=== PATIENT | male | born 1980 | race Two or more races ===

== ENCOUNTER 2023-11-27 13:29 | Emergency (ER) | payer BC, SELFPAY ==
[2023-11-27 13:33] VITALS: BP 152/90; BMI 34.9
[2023-11-27 14:37] LABS: % Eosinophils 1.6 % (0-6); % Immature Granulocytes 0.1 % (0-0.5); % Lymphocytes 30.9 % (20.5-51.1); % Monocytes 8.6 % (1.7-9.3); % Neutrophils 57.8 % (42.2-75.2); Absolute Basophils 0.1 10^3/uL (0-0.2); Absolute Eosinophils 0.1 10^3/uL (0-0.7); Absolute Lymphocytes 2.2 10^3/uL (1.2-3.4); Absolute Monocytes 0.6 10^3/uL (0.1-0.6); Absolute Neutrophils 4.1 10^3/uL (1.4-6.5); Hematocrit 41.6 % (39.0-52.0); Hemoglobin 14.5 g/dL (13.0-18.0); Mean Corp Hgb Conc. 34.9 g/dL (33.0-37.0); Mean Corpuscular Hgb 29.9 pg (27.0-31.0); Mean Corpuscular Volume 85.8 fL (80.0-94.0); Nucleated Red Blood Cells % 0 % (-); Platelet Count 278 10^3/uL (130-400); Red Blood Cell Count 4.85 10^6/uL (4.70-6.10); Red Cell Dist. Width 13.6 % (11.5-14.5)
[2023-11-27 14:59] LABS: ALT (SGPT) 36 U/L (0-50); AST (SGOT) 28 U/L (17-59); Albumin 4.3 g/dl (3.5-5.0); Alkaline Phosphatase 69 U/L (38-126); Blood Urea Nitrogen 35 mg/dl (9-20); Calcium 9.8 mg/dl (8.4-10.2); Carbon Dioxide 29 mmol/L (22-30); Chloride 103 mmol/L (98-107); Estimated Creatinine Clearance 103 ml/min; Glucose 99 mg/dl (70-99); Potassium 4.4 mmol/L (3.5-5.1); Sodium 138 mmol/L (135-145); Total Bilirubin 0.4 mg/dl (0.2-1.3); Total Protein 7.1 g/dl (6.3-8.2); eGFR > 60.00
[2023-11-27 15:03] LABS: Troponin I < 0.012 ng/ml
--- NOTE | 2023-11-27 15:06 | ED.GENMED ---
History of Present Illness
General
Chief Complaint: Chest Pain
Source: patient
Exam Limitations: none
Time Seen by Provider: 11/27/23 15:05
Travel History
Have you had any contact with someone who has COVID-19?: No
Do you have any symptoms of coronavirus? Fever > 100 degrees, chills, cough, shortness of breath, sore throat, loss of taste or smell, muscle aches, or headache?: No
History of Present Illness
History of Present Illness:
43-year-old male with 3 days of intermittent sharp localized left lateral chest pain. Will last seconds. Has had 5-6 episodes today. Only component that seems to cause it is bouncing in his truck. He is a medical driver.
Past History
Social History
Tobacco: Non-smoker
Employment: Employed
Family History
Family History: CAD
Phy Exam
Physical Exam
Physical Exam:
GENERAL: Alert and oriented in no apparent distress
EYE: Orbits normal.
NECK: Supple, no significant adenopathy.
ENT: Pharynx without erythema
CARDIAC: Regular rate and rhythm without any obvious murmurs.
LUNGS: Clear breath sounds,normal
ABDOMEN: Soft, without focal tenderness or distention
NEUROLOGICAL: Alert and oriented , grossly non-focal
SKIN: Warm and dry, no rash or lesion, no discoloration, skin intact.
MUSCULOSKELETAL: No edema,no deformity.Good color
PSYCH: Normal and appropriate interaction.
Scores
Heart Score for Chest Pain Patients
STEMI patient?: No
History: Slightly or Non-Suspicious
ECG: Normal
Age: </= 45 years
Risk Factors: 1 or 2 Risk Factors
Troponin: </= Normal Limit
Heart Score for Chest Pain Patients: 1
Heart Score Risk: 2.5% MACE over next 6 weeks
Course
Orders/Labs/Results
Orders:
Orders
11/27/23 13:35
Electrocardiogram (*1) Urgent
Reason for Study: Chest Pain
EKG- Treatment ONCE
11/27/23 14:29
Complete Blood Count/With Diff Urgent
Comprehensive Metabolic Panel Urgent
Troponin I Urgent
11/27/23 15:14
CXR2 [CR Chest - 2 Views ] Urgent
Comment:
Reason For Exam: Sharp left lateral chest pain
11/27/23 15:52
D-Dimer Urgent
Abnormal Lab Results
11/27/23
14:29
MPV 11.0 H fL
(7.4-10.4)
BUN 35 H mg/dl
(9-20)
11/27/23 14:29
11/27/23 14:29
Vital Signs
Initial and Last Documented VS:
Initial Vital Signs
Temp Pulse Resp BP Pulse Ox
98.3 F 68 16 152/90 100
11/27/23 13:33 11/27/23 13:33 11/27/23 13:33 11/27/23 13:33 11/27/23 13:33
Last Documented Vital Signs
Temp Pulse Resp BP Pulse Ox
98.3 F 68 16 152/90 100
11/27/23 13:33 11/27/23 13:33 11/27/23 13:33 11/27/23 13:33 11/27/23 13:33
*Radiology
Radiology exam reviewed: radiology read reviewed (Negative)
*Pulse Oximetry
Patient hypoxic: no
*EKG
Interpreted by ED Provider?: Yes
Interpretation: normal
Comparison EKG: no comparison EKG present
Heart Rate: 59
Rate: normal
Rhythm: sinus
Hood: normal axis
Interval: normal interval
QRS Pattern: normal QRS
Ischemia: no ischemia
*Critical Care Note
Total Time (30-74mins, 75-104mins- exclusive of procedures): Not Applicable
Update Note
Update Note:
Patient is remained medically stable and nontoxic. Very atypical symptoms for cardiac but sharp very brief pain that is worse with bouncing in his truck. Stable vital signs. Negative D-dimer. Negative chest x-ray. Discharged to follow-up
ED Attending Note
-
Portions of this chart may have been created with voice recognition software.� Occasional wrong word or��sound alike� substitutions may have occurred due to the inherent limitations of voice recognition software.
Discharge Plan
Departure
Patient Disposition: Home (Routine Discharge)
Date of Disposition: 11/27/23
Time of Disposition: 17:02
Patient with high blood pressure during this ER visit?: Yes
Discharge Problem:
Left-sided chest pain
Instructions: Chest Pain DCA Follow Up, BLOOD PRESSURE
Referrals:
Mary Bailey NP [Family Provider] - Follow up in 2-3 days
Interventions
Interventions:
*Risk Screen - Suicide Last Done: 11/27/23 13:33
*General Assessment Last Done: 11/27/23 16:03
*Neglect/Abuse Screening Last Done: 11/27/23 13:33
ED- Fall Risk Assessment Last Done: 11/27/23 15:46
*ED COVID-19 Vaccine History Last Done: 11/27/23 15:46
ED- Cardiac Assessment Last Done: 11/27/23 15:49
Discharge Date and Time
Print Language: MONEGASQUE
[2023-11-27 16:29] LABS: D-Dimer < 0.27 ug/mlFEU (0.00-0.50)
[2023-11-27 17:00] VITALS: BP 120/74
== END 2023-11-27 17:25 | disposition home or self-care (01) ==
LOC: EMR 13:29
PROVIDERS: Emergency Medicine; EMERGENCY PHYSICIAN Emergency Medicine; FAMILY PHYSICIAN Nurse Practitioner Family
DX: R07.89 Other chest pain (principal); R03.0 Elevated blood-pressure reading, without diagnosis of hypertension
CPT/HCPCS: 99283; 71046; 80053; 84484; 85025; 85379; 93005